=== PATIENT | female | born 1975 | race American Indian/Alaskan Native ===

== ENCOUNTER 2017-09-01 12:17 | Emergency (ER) | payer OTHER, BC ==
[2017-09-01 12:47] VITALS: BMI 38.9
[2017-09-01 13:34] VITALS: RESP 18; TEMP 98.4
--- NOTE | 2017-09-01 13:51 | ED PDOC ---
Arrival/HPI - General Chief Complaint: Trauma Time Seen by Provider: 09/01/17 13:28 Historian: Patient - History of Present Illness Narrative History of Present Illness (Text): 09/01/17 13:48 41-year-old female presents today with right shoulder pain status post injury. Patient states 4 days ago while at work she tried to catch a large heavy object that was falling out of a cabinet. Patient states the object weight 90 pounds and she carried the object to the floor. Patient states since then she has been having pain over the anterior aspect of the shoulder with limited abduction of the shoulder. Patient denies numbness weakness or tingling in the extremity. Patient states she's been taking Tylenol for pain without improvement Symptom Onset: Sudden Symptom Course: Unchanged Quality: Aching Severity Level: 7 Past Medical History - Provider Review Nursing Documentation Reviewed: Yes - Travel History Have you recently traveled outside [place] w/in the past 3 mons?: No - Past History Past History: No Previous - Infectious Disease Hx of Infectious Diseases: None - Tetanus Immunization Tetanus Immunization: Unknown - Reproductive Menopause: (08/14/2017) - Cardiac Hx Hypertension: Yes - Pulmonary Hx Pulmonary Embolism: Yes - Musculoskeletal/Rheumatological Hx Fractures: Yes (Fx B/L Navicular) - Psychiatric Hx Depression: No Hx Substance Use: No - Past Surgical History Past Surgical History: No Previous - Surgical History Hx Orthopedic Surgery: Yes (RIGHT ANKLE) - Anesthesia Hx Anesthesia: Yes Hx Anesthesia Reactions: No Hx Malignant Hyperthermia: No - Suicidal Assessment Feels Threatened In Home Enviroment: No Family/Social History - Physician Review Nursing Documentation Reviewed: Yes Family/Social History: Unknown Family HX Smoking Status: Never Smoked Hx Alcohol Use: No Hx Substance Use: No Hx Substance Use Treatment: No Allergies/Home Meds Allergies/Adverse Reactions: Allergies cephalexin monohydrate [From Keflex] Allergy (Verified 09/01/17 13:03) RASH ibuprofen Allergy (Verified 09/01/17 13:03) RASH sulfamethoxazole [From Sulfamethoprim] Allergy (Verified 09/01/17 13:03) RASH trimethoprim Allergy (Verified 09/01/17 13:03) RASH Home Medications: Home Meds Medication Instructions Recorded Confirmed Labetalol HCl 100 mg PO BID 06/12/15 09/01/17 Review of Systems - Review of Systems Constitutional: absent: Fatigue, Fevers Respiratory: absent: SOB, Cough Cardiovascular: absent: Chest Pain, Palpitations Gastrointestinal: absent: Abdominal Pain, Vomiting Genitourinary Female: absent: Dysuria Musculoskeletal: Arthralgias (right shoulder pain). absent: Back Pain, Neck Pain Skin: absent: Rash, Pruritis Psychiatric: absent: Anxiety, Depression Physical Exam Vital Signs Reviewed: Yes Vital Signs Temp Pulse Resp BP Pulse Ox 09/01/17 15:12 71 18 125/73 95 09/01/17 13:00 98.4 F 66 18 144/90 99 Temperature: Afebrile Blood Pressure: Normal Pulse: Regular Respiratory Rate: Normal Appearance: Positive for: Well-Appearing, Non-Toxic, Comfortable Pain Distress: None Mental Status: Positive for: Alert and Oriented X 3 - Systems Exam Head: Present: Atraumatic Neck: Present: Normal Range of Motion. No: MIDLINE TENDERNESS, Paraspinal Tenderness Respiratory/Chest: Present: Clear to Auscultation, Good Air Exchange. No: Respiratory Distress, Accessory Muscle Use Cardiovascular: Present: Regular Rate and Rhythm, Normal S1, S2. No: Murmurs Upper Extremity: Present: NORMAL PULSES, Tenderness (right shoulder; + ttp over anterior aspect of shoulder; no edema, no erythema; no ecchymosis; + limited abduction of shoulder. increased abduction with passive rom of shoulder. sensation and distal pulses intact. cap refill <2. ), Neurovascularly Intact, Capillary Refill < 2s. No: Normal ROM, Swelling, Erythema, Deformity Neurological: Present: GCS=15, Speech Normal Skin: Present: Warm, Dry, Normal Color. No: Rashes Psychiatric: Present: Alert, Oriented x 3 Medical Decision Making ED Course and Treatment: 09/01/17 13:50 Patient nontoxic well-appearing in no distress with stable vital signs X-rays of the right shoulder; FINDINGS: BONES: Normal. No fracture. JOINTS: Normal. Glenohumeral and acromioclavicular joints preserved. No osteoarthritis. SOFT TISSUES: Normal. OTHER FINDINGS: None. IMPRESSION: Normal radiographs of the right shoulder tramadol po I discussed all results with patient advised to followup with the orthopedist for the next 2 days. Return if symptoms worsen persist or new symptoms develop i advised the patient that although the xrays show no fracture; there is still a possibility for ligamentous or tendon injury the patient must see the orthopedist for further evaluation. Patient verbalizes understanding of discharge instructions and need for immediate followup. all aspects of this case were discussed the attending of record. Impression: Shoulder pain Motrin every 6 hours as needed for pain tramadol; 1 tablet every 6 hours as needed for moderate to severe pain. may cause drowsiness. Rest, ice Followup with the orthopedist within the next 2 days Followup with primary care physician within the next 2 days Return if any other concerning symptoms develop - RAD Interpretation Radiology Orders: 09/01/17 13:28 SHOULDER RIGHT [RAD] Stat - Medication Orders Current Medication Orders: Discontinued Medications Tramadol HCl (Ultram) 50 mg PO STAT STA Stop: 09/01/17 13:29 Last Admin: 09/01/17 13:58 Dose: 50 mg MAR Pain Assessment Document 09/01/17 13:58 RICK (Rec: 09/01/17 13:58 RICK [id number]) Pain Reassessment Is this a pain reassessment? No Sleep Is patient sleeping during reassessment? No Presence of Pain Presence of Pain Yes Disposition/Present on Arrival - Present on Arrival Any Indicators Present on Arrival: Yes History of DVT/PE: Yes History of Uncontrolled Diabetes: No Urinary Catheter: No History of Decub. Ulcer: No History Surgical Site Infection Following: None - Disposition Have Diagnosis and Disposition been Completed?: Yes Diagnosis: Shoulder pain Disposition: HOME/ ROUTINE Disposition Time: 15:24 Patient Plan: Discharge Condition: GOOD Discharge Instructions (ExitCare): Shoulder Pain (DC) Additional Instructions: Motrin every 6 hours as needed for pain tramadol; 1 tablet every 6 hours as needed for moderate to severe pain. may cause drowsiness. Rest, ice Followup with the orthopedist within the next 2 days Followup with primary care physician within the next 2 days Return if any other concerning symptoms develop Prescriptions: traMADol [Ultram] 50 mg PO Q6H PRN #6 tab PRN Reason: moderate to severe pain Referrals: Abram Mtz MD [Primary Care Provider] - Follow up with primary Liborio Gardner DO [Staff Provider] - Follow up with primary Forms: [facility] (Gu[place]ian), WORK NOTE
[2017-09-01 15:13] VITALS: BP 125/73; PULSE 71; O2SAT 95
--- NOTE | 2017-09-01 15:19 | RAD ---
PROCEDURE: Radiographs of the Right Shoulder HISTORY: right shoulder pain s/p injury COMPARISON: No prior. FINDINGS: BONES: Normal. No fracture. JOINTS: Normal. Glenohumeral and acromioclavicular joints preserved. No osteoarthritis. SOFT TISSUES: Normal. OTHER FINDINGS: None. IMPRESSION: Normal radiographs of the right shoulder.
== END 2017-09-01 16:00 | disposition home or self-care (01) ==
LOC: ED 12:17
DX: M25.511 Pain in right shoulder (principal); I10 Essential (primary) hypertension